=== PATIENT | female | born 1960 | race Caucasian/White ===

== ENCOUNTER 2016-11-06 16:16 | Emergency (ER) | payer OTHER ==
[2016-11-06] MEDS ORDERED: THIAMINE 100 MG TAB PO SCH (17:00)
--- NOTE | 2016-11-06 17:31 | ED ---
Psych HPI - General Chief Complaint: Psychiatric Symptoms Stated Complaint: Mental Health Time Seen by Provider: 11/06/16 17:01 Source: patient, RN notes reviewed, old records reviewed Mode of arrival: ambulatory - History of Present Illness Initial Comments: This is a 56-year-old female presenting to the emergency Department chief complaint suicidal ideations. Patient reports that she is currently struggling with heroin abuse. Patient reports that she try to go to [facility] today to admit herself however they had no intention of admitting her. Patient reports that she is "fed up with the system". Patient reports that she wants to harm herself by jumping in front of a semitruck. Patient arrives to emergency department with her ex- who which she has a good relationship with. Patient states that she has taken Paxil for depression. Patient reports that she has been using heroin off and on for the past year. Patient reports it started with a next boyfriend is contributing to her addiction. Patient states that she last used 3 days ago, patient reports that she's been drinking to help going through withdrawal since then. Patient reports that her last treatment was earlier today. Patient reports that she has a history of COPD, denies any difficulty breathing or recent exacerbations. Patient reports that she does smoke less than half a pack a day.Patient denies any recent fever, chills, shortness of breath, chest pain, back pain, abdominal pain, nausea vomiting, numbness or tingling, dysuria or hematuria, constipation or diarrhea, headaches or visual changes, or any other current symptoms - Related Data Home Medications Medication Instructions Recorded Confirmed Albuterol Inhaler [Ventolin Hfa 1 - 2 puff INHALATION RT-Q4H PRN 11/06/16 Inhaler] Budesonide/Formoterol Fumarate 2 puff INHALATION RT-BID 11/06/16 11/06/16 [Symbicort 160-4.5 Mcg Inhaler] Fenofibrate,Micronized 134 mg PO DAILY 11/06/16 11/06/16 [Fenofibrate] PARoxetine HCL [Paxil] 40 mg PO DAILY 11/06/16 11/06/16 Potassium Chloride ER [K-Dur 10] 10 meq PO DAILY 11/06/16 11/06/16 QUEtiapine FUMARATE [Seroquel] 50 mg PO HS 11/06/16 11/06/16 Ranitidine HCl [Zantac] 300 mg PO DAILY 11/06/16 11/06/16 Tiotropium [place] [Spiriva] 1 cap INHALATION RT-DAILY 11/06/16 11/06/16 amLODIPine [Norvasc] 10 mg PO DAILY 11/06/16 11/06/16 chlordiazePOXIDE HCL 25 mg PO TID 11/06/16 11/06/16 Allergies Allergy/AdvReac Type Severity Reaction Status Date / Time No Known Allergies Allergy Unverified 11/06/16 17:38 Review of Systems ROS Statement: Those systems with pertinent positive or pertinent negative responses have been documented in the HPI. ROS Other: All systems not noted in ROS Statement are negative. Past Medical History Past Medical History: Asthma, COPD, GERD/Reflux Past Surgical History: Hysterectomy Past Psychological History: Bipolar, Depression Smoking Status: Current every day smoker Past Alcohol Use History: Daily Past Drug Use History: Heroin General Exam Limitations: no limitations General appearance: alert, in no apparent distress Head exam: Present: atraumatic, normocephalic, normal inspection Eye exam: Present: normal appearance, PERRL, EOMI. Absent: scleral icterus, conjunctival injection, periorbital swelling ENT exam: Present: normal exam, mucous membranes moist Neck exam: Present: normal inspection. Absent: tenderness, meningismus, lymphadenopathy Respiratory exam: Present: normal lung sounds bilaterally. Absent: respiratory distress, wheezes, rales, rhonchi, stridor Cardiovascular Exam: Present: regular rate, normal rhythm, normal heart sounds. Absent: systolic murmur, diastolic murmur, rubs, gallop, clicks GI/Abdominal exam: Present: soft, normal bowel sounds. Absent: distended, tenderness, guarding, rebound, rigid Extremities exam: Present: normal inspection, full ROM, normal capillary refill. Absent: tenderness, pedal edema, joint swelling, calf tenderness Back exam: Present: normal inspection Neurological exam: Present: alert, oriented X3, CN II-XII intact Psychiatric exam: Present: normal affect, depressed (Patient is crying. Patient reports that she is extremely depressed. Patient states that she has suicidal thoughts, jump in front of a semitruck.), flat affect, suicidal ideation. Absent: normal mood Skin exam: Present: warm, dry, intact, normal color. Absent: rash Course Vital Signs 11/06/16 11/06/16 11/06/16 16:51 19:00 20:50 Temperature 97.9 F 98.0 F Pulse Rate 117 H 87 90 Respiratory 22 20 Rate Blood Pressure 157/83 146/68 O2 Sat by Pulse 95 99 Oximetry 11/06/16 11/06/16 11/07/16 21:01 22:01 00:11 Temperature 98.7 F Pulse Rate 90 100 83 Respiratory 20 18 Rate Blood Pressure 158/90 130/75 O2 Sat by Pulse 95 98 Oximetry - Reevaluation(s) Reevaluation #1: 11/07/16 03:53 At this time patient will be transferred to [facility]. Medical Decision Making - Medical Decision Making This is a 56-year-old female presenting to the emergency Department chief complaint suicidal ideations. Patient reports that she is currently struggling with heroin abuse. Patient reports that she try to go to [facility] today to admit herself however they had no intention of admitting her. Patient reports that she is "fed up with the system". Patient reports that she wants to harm herself by jumping in front of a semitruck. Patient arrives to emergency department with her ex- who which she has a good relationship with. Patient states that she has taken Paxil for depression. Patient reports that she has been using heroin off and on for the past year. Patient reports it started with a next boyfriend is contributing to her addiction. Patient states that she last used 3 days ago, patient reports that she's been drinking to help going through withdrawal since then. Patient reports that her last treatment was earlier today. Patient reports that she has a history of COPD, denies any difficulty breathing or recent exacerbations. Patient desires emergency department somewhat intoxicated. Patient will be sober at p.m. At that time she is medically clear for psychiatric evaluation. Was evaluated by EPS. They will admit the patient. She is a resident of [facility] so they currently are pending transfer. Patient was placed on stable protocol for withdrawals. He'll be seen emergency department until an open fist and [facility]. Currently pending transfer. Also due to history of COPD patient received DuoNeb treatment when necessary. Patient will be transferred and [facility] at 4:00 in the morning. - Lab Data Result diagrams: 11/06/16 21:20 11/06/16 21:20 Lab Results 11/06/16 11/06/16 11/06/16 Range/Units 18:16 18:16 18:16 WBC (3.8-10.6) k/uL RBC (3.80-5.40) m/uL Hgb (11.4-16.0) gm/dL Hct (34.0-46.0) % MCV (80.0-100.0) fL MCH (25.0-35.0) pg MCHC (31.0-37.0) g/dL RDW (11.5-15.5) % Plt Count (150-450) k/uL Neutrophils % % Lymphocytes % % Monocytes % % Eosinophils % % Basophils % % Neutrophils # (1.3-7.7) k/uL Lymphocytes # (1.0-4.8) k/uL Monocytes # (0-1.0) k/uL Eosinophils # (0-0.7) k/uL Basophils # (0-0.2) k/uL Sodium (137-145) mmol/L Potassium (3.5-5.1) mmol/L Chloride (98-107) mmol/L Carbon Dioxide (22-30) mmol/L Anion Gap mmol/L BUN (7-17) mg/dL Creatinine (0.52-1.04) mg/dL Est GFR (MDRD) Af Amer (>60 ml/min/1.73 sqM) Est GFR (MDRD) Non-Af (>60 ml/min/1.73 sqM) Glucose (74-99) mg/dL Calcium (8.4-10.2) mg/dL Total Bilirubin (0.2-1.3) mg/dL AST (14-36) U/L ALT (9-52) U/L Alkaline Phosphatase (38-126) U/L Total Protein (6.3-8.2) g/dL Albumin (3.5-5.0) g/dL Urine Color Light Yellow Urine Appearance Cloudy H (Clear) Urine pH 5.5 (5.0-8.0) Ur Specific [place] 1.005 (1.001-1.035) Urine Protein 2+ H (Negative) Urine Glucose (UA) Negative (Negative) Urine Ketones Negative (Negative) Urine Blood Small H (Negative) Urine Nitrite Negative (Negative) Urine Bilirubin Negative (Negative) Urine Urobilinogen <2.0 (<2.0) mg/dL Ur Leukocyte Esterase Trace H (Negative) Urine RBC 1 (0-5) /hpf Urine WBC 1 (0-5) /hpf Ur Squamous Epith Cells 5 H (0-4) /hpf Urine Bacteria Rare H (None) /hpf Urine HCG, Qual Not Detected (Not Detectd) Urine Opiates Screen Detected H (NotDetected) Ur Oxycodone Screen Not Detected (NotDetected) Urine Methadone Screen Not Detected (NotDetected) Ur Propoxyphene Screen Not Detected (NotDetected) Ur Barbiturates Screen Not Detected (NotDetected) U Tricyclic Antidepress Not Detected (NotDetected) Ur Phencyclidine Scrn Not Detected (NotDetected) Ur Amphetamines Screen Not Detected (NotDetected) U Methamphetamines Scrn Not Detected (NotDetected) U Benzodiazepines Scrn Detected H (NotDetected) Urine Cocaine Screen Not Detected (NotDetected) U Marijuana (THC) Screen Not Detected (NotDetected) 11/06/16 11/06/16 Range/Units 21:20 21:20 WBC 6.5 (3.8-10.6) k/uL RBC 4.53 (3.80-5.40) m/uL Hgb 13.8 (11.4-16.0) gm/dL Hct 39.9 (34.0-46.0) % MCV 87.9 (80.0-100.0) fL MCH 30.4 (25.0-35.0) pg MCHC 34.6 (31.0-37.0) g/dL RDW 14.2 (11.5-15.5) % Plt Count 289 (150-450) k/uL Neutrophils % 61 % Lymphocytes % 28 % Monocytes % 4 % Eosinophils % 3 % Basophils % 1 % Neutrophils # 4.0 (1.3-7.7) k/uL Lymphocytes # 1.9 (1.0-4.8) k/uL Monocytes # 0.3 (0-1.0) k/uL Eosinophils # 0.2 (0-0.7) k/uL Basophils # 0.0 (0-0.2) k/uL Sodium 141 (137-145) mmol/L Potassium 3.6 (3.5-5.1) mmol/L Chloride 105 (98-107) mmol/L Carbon Dioxide 24 (22-30) mmol/L Anion Gap 12 mmol/L BUN 8 (7-17) mg/dL Creatinine 0.66 (0.52-1.04) mg/dL Est GFR (MDRD) Af Amer >60 (>60 ml/min/1.73 sqM) Est GFR (MDRD) Non-Af >60 (>60 ml/min/1.73 sqM) Glucose 79 (74-99) mg/dL Calcium 9.6 (8.4-10.2) mg/dL Total Bilirubin 0.6 (0.2-1.3) mg/dL AST 25 (14-36) U/L ALT 22 (9-52) U/L Alkaline Phosphatase 94 (38-126) U/L Total Protein 6.7 (6.3-8.2) g/dL Albumin 4.1 (3.5-5.0) g/dL Urine Color Urine Appearance (Clear) Urine pH (5.0-8.0) Ur Specific [place] (1.001-1.035) Urine Protein (Negative) Urine Glucose (UA) (Negative) Urine Ketones (Negative) Urine Blood (Negative) Urine Nitrite (Negative) Urine Bilirubin (Negative) Urine Urobilinogen (<2.0) mg/dL Ur Leukocyte Esterase (Negative) Urine RBC (0-5) /hpf Urine WBC (0-5) /hpf Ur Squamous Epith Cells (0-4) /hpf Urine Bacteria (None) /hpf Urine HCG, Qual (Not Detectd) Urine Opiates Screen (NotDetected) Ur Oxycodone Screen (NotDetected) Urine Methadone Screen (NotDetected) Ur Propoxyphene Screen (NotDetected) Ur Barbiturates Screen (NotDetected) U Tricyclic Antidepress (NotDetected) Ur Phencyclidine Scrn (NotDetected) Ur Amphetamines Screen (NotDetected) U Methamphetamines Scrn (NotDetected) U Benzodiazepines Scrn (NotDetected) Urine Cocaine Screen (NotDetected) U Marijuana (THC) Screen (NotDetected) Disposition Clinical Impression: Suicidal ideation Disposition: TRANSFER TO PSYCH HOSP/UNIT Condition: Stable Referrals: Nonstaff,Physician [Primary Care Provider] - 1-2 days Time of Disposition: 03:54
[2016-11-06] MEDS ORDERED: NICOTINE 21MG/24HR PATCH TRANSDERM STA (20:42)
[2016-11-06] MEDS ORDERED: IPRATROPIUM-ALBUTEROL 3 ML NEB INHALATION STA (20:42)
[2016-11-06] MEDS ORDERED: LORazepam 2 MG/ML SYRINGE IV PRN ×3 (21:08)
[2016-11-06] MEDS ORDERED: THIAMINE 100 MG/ML 2 ML VIAL IM STA (21:08)
[2016-11-06 21:24] LABS: Appearance,Urine Cloudy (Clear); Bacteria,Urine Rare /hpf; Bilirubin,Urine Negative (Negative); Glucose,Urine (UA) Negative (Negative); Ketones,Urine Negative (Negative); Leukocyte Esterase,Urine Trace (Negative); Nitrite,Urine Negative (Negative); PH, Urine 5.5 (5.0-8.0); Particle Count 1792; Protein,Urine 2+ (Negative); RBC,Urine 1 /hpf (0-5); Specific Gravity,Urine 1.005 (1.001-1.035); Squamous Epithelial Cell,Urine 5 /hpf (0-4); UA Billing (MACRO vs. MICRO) MICRO; Urobilinogen,Urine <2.0 mg/dL (<2.0); WBC,Urine 1 /hpf (0-5)
[2016-11-06 21:31] LABS: Basophils % (A) 1 %; CH 31.1; CHCM 35.5; Eosinophils # (A) 0.2 k/uL (0-0.7); Eosinophils % (A) 3 %; HCT 39.9 % (34.0-46.0); HDW 2.79; HGB 13.8 gm/dL (11.4-16.0); Luc % (Auto) 3; Lymphocytes # (A) 1.9 k/uL (1.0-4.8); Lymphocytes % (A) 28 %; MCH 30.4 pg (25.0-35.0); MCHC 34.6 g/dL (31.0-37.0); MCV 87.9 fL (80.0-100.0); Mean Platelet Volume 6.9; Monocytes # (A) 0.3 k/uL (0-1.0); Monocytes % (A) 4 %; Neutrophils % (A) 61 %; RBC 4.53 m/uL (3.80-5.40); RDW 14.2 % (11.5-15.5); WBC 6.5 k/uL (3.8-10.6); WBC (Perox) 6.64
[2016-11-06 21:49] LABS: ALT 22 U/L (9-52); AST 25 U/L (14-36); Alkaline Phosphatase 94 U/L (38-126); Anion Gap 12 mmol/L; Blood Urea Nitrogen 8 mg/dL (7-17); Calcium 9.6 mg/dL (8.4-10.2); Carbon Dioxide 24 mmol/L (22-30); Chloride 105 mmol/L (98-107); Glucose 79 mg/dL (74-99); Non-African American GFR(MDRD) >60 (>60 ml/min/1.73 sqM); Potassium 3.6 mmol/L (3.5-5.1); Sodium 141 mmol/L (137-145); Total Bilirubin 0.6 mg/dL (0.2-1.3); Total Protein 6.7 g/dL (6.3-8.2)
[2016-11-06 22:06] VITALS: TEMP 98.7
[2016-11-07 00:11] VITALS: PULSE 83
[2016-11-07] MEDS ORDERED: LORazepam 2 MG/ML SYRINGE IV STA (05:12)
[2016-11-07 05:41] VITALS: BP 157/85; RESP 16
== END 2016-11-07 05:57 ==
LOC: EC 16:16
DX: R45.851 Suicidal ideations (principal); J44.9 Chronic obstructive pulmonary disease, unspecified; J45.909 Unspecified asthma, uncomplicated; F31.9 Bipolar disorder, unspecified; K21.9 Gastro-esophageal reflux disease without esophagitis; F17.200 Nicotine dependence, unspecified, uncomplicated; Z79.899 Other long term (current) drug therapy; Z79.51 Long term (current) use of inhaled steroids
CPT/HCPCS: 82075; 36415 ×2; 94640; 80053; 85025; 81001; 80306; 80320; 81025; 99285; 96374; 96376; 96372; S4990; J2060 ×2; J3411